=== PATIENT | male | born 1965 | race Caucasian/White ===

== ENCOUNTER 2017-04-25 17:55 | Emergency (ER) | payer OTHER ==
[~2017-04-25] VITALS: Ht 180.3 cm; Wt 84.4 kg
--- NOTE | 2017-04-25 18:38 | NUR ---
Dr Evans at the bedside.
--- NOTE | 2017-04-25 18:52 | NUR ---
Patient discharged to home in stable conditon. Written and verbal after care instructions given. Patient verbalizes understanding of instructions.
[2017-04-25 18:53] VITALS: BP 153/103
== END 2017-04-25 18:53 | disposition home or self-care (01) ==
LOC: ER 17:56
DX: Z00.8 Encounter for other general examination (principal)
CPT/HCPCS: A4663